=== PATIENT | male | born 1965 | race Caucasian/White ===

== ENCOUNTER → 2016-11-25 | Outpatient (CLI) | payer MEDICAID ==
--- NOTE | 2016-11-25 15:20 | CR ---
EXAMINATION: Lumbar spine HISTORY: Low back pain COMPARISON: MRI dated 08/21/2016 TECHNIQUE: AP, lateral, flexion and extension images obtained. FINDINGS: The lumbar spinal alignment appears normal. The vertebral body heights and disc spaces shiva ear well-maintained. The SI joints are symmetric. Bone mineralization is normal. Marginal osteophyte s are noted. Alignment appears unchanged with flexion and extension. IMPRESSION: Mild degenerative changes without acute findings.
== END ==
LOC: MW.DI 11:45
PROVIDERS: ATTEND Neurological Surgery
DX: M54.5 Low back pain (principal); M47.816 Spondylosis without myelopathy or radiculopathy, lumbar region
CPT/HCPCS: 72110; 72110-26

== ENCOUNTER → 2016-12-02 | Outpatient (CLI) | payer MEDICAID ==
--- NOTE | 2016-12-02 16:18 | CR ---
EXAMINATION: Pelvis and bilateral hips HISTORY: Pain COMPARISON: None TECHNIQUE: AP and lateral views FINDINGS: There is no acute osseous abnormality, dislocation, or fracture identified. Bone mineraliz ation appears normal. Mild joint space narrowing within the hips bilaterally with mild osteophyte fo rmation. The SI joints are symmetric. The iliopectineal lines are intact. IMPRESSION: Mild joint space narrowing and degenerative changes within the hips bilaterally.
== END ==
LOC: MW.CHPM 07:32
PROVIDERS: ATTEND Physician Assistant
DX: M25.551 Pain in right hip (principal); M25.552 Pain in left hip; M25.852 Other specified joint disorders, left hip; M25.851 Other specified joint disorders, right hip
CPT/HCPCS: 73521; 73521-26

== ENCOUNTER 2017-03-10 09:04 | Day surgery (SDC) | payer MEDICAID ==
[~2017-03-10 09:04] MED LIST: Lactated Ringers 1,000 ML IV SCH; Midazolam 1 MG/ML 2 ML SDV ONE; Propofol 200 MG/20 ML SDV ONE
--- NOTE | 2017-03-10 09:28 | PCM.PREANE ---
Preanesthetic Assessment - Anesthesia/Transfusion/Family Hx Other Type of Anesthesia Reaction Comment: states he was told he had difficulty breathing during exc of cheek lesion Family History of Anesthesia Reaction: No Transfusion History: No Prior Transfusion(s) Intubation History: Unknown - Review of Systems General: No Symptoms Pulmonary: No Symptoms Cardiovascular: No Symptoms Gastrointestinal: Other (change in bowel habits) Neurological: No Symptoms Other: Reports: None - Physical Assessment Height: 1.78 m Weight: 133.356 kg ASA Class: 2 Mental Status: Alert & Oriented x3 Dentition: Reports: Normal Dentition, Olcott(s) Thyro-Mental Finger Breadths: 3 Mouth Opening Finger Breadths: 2 ROM/Head Extension: Full Lungs: Clear to Auscultation, Normal Respiratory Effort Cardiovascular: Regular Rate, Regular Rhythm - Allergies Allergies/Adverse Reactions: Allergies Allergy/AdvReac Type Severity Reaction Status Date / Time hydrocodone Allergy Itching Verified 01/20/16 16:15 paroxetine HCl [From Paxil] Allergy Itching Verified 01/20/16 16:15 - Blood Blood Available: No - Anesthesia Plan Pre-Op Medication Ordered: None - Acknowledgements Anesthesia Type Planned: MAC Pt an Appropriate Candidate for the Planned Anesthesia: Yes Alternatives and Risks of Anesthesia Discussed w Pt/Guardian: Yes Pt/Guardian Understands and Agrees with Anesthesia Plan: Yes PreAnesthesia Questionnaire - Past Health History Medical/Surgical History: Denies Medical/Surgical History HEENT History: Reports: None Cardiovascular History: Reports: Hypertension Respiratory History: Reports: Other (See Below) Other Respiratory History: possible sleep apnea, has not been diagnosed Gastrointestinal History: Reports: GERD Genitourinary History: Reports: None Musculoskeletal History: Reports: Arthritis (hips), Back Pain, Chronic, Other ( See Below) Other Musculoskeletal History: 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 Neurological History: Reports: None Psychiatric History: Reports: None Endocrine/Metabolic History: Reports: Obesity/BMI 30+ Hematologic History: Reports: None Immunologic History: Reports: None Oncologic (Cancer) History: Reports: Other (See Below) Other Oncologic History: surgical removal skin cancer to face Dermatologic History: Reports: None - Infectious Disease History Infectious Disease History: Reports: Chicken Pox - Past Surgical History Head Surgeries/Procedures: Reports: None (exc. of skin cancer left side face) HEENT Surgical History: Reports: Tonsillectomy, Other (See Below) Musculoskeletal Surgical History: Reports: Other (See Below) Other Musculoskeletal Surgeries/Procedures:: 2nd digit left hand end of finger amputation, bone spur removed from rt shoulder Dermatological Surgical History: Reports: Skin Biopsy - SUBSTANCE USE Smoking Status *Q: Former Smoker Second Hand Smoke Exposure: No Days Per Week of Alcohol Use: 0 Recreational Drug Use History: No - HOME MEDS Home Medications: Home Meds Esomeprazole [NexIUM] 40 mg PO DAILY PRN 12/28/13 [History] QUEtiapine [SEROquel] 150 mg PO BEDTIME 12/28/13 [History] Lisinopril 10 mg PO DAILY 03/05/17 [History] amLODIPine [Norvasc] 10 mg PO DAILY 03/05/17 [History] - CURRENT (IN HOUSE) MEDS Current Meds: Current Medications Lactated Ringer's (Ringers, Lactated) 1,000 mls @ 125 mls/hr IV ASDIRECTED MATILDE Last Admin: 03/10/17 09:16 Dose: 125 mls/hr Discontinued Medications Lidocaine HCl (Xylocaine-Mpf 1%) Confirm Administered Dose 5 ml .ROUTE .STK-MED ONE Stop: 03/10/17 07:26 Midazolam HCl (Versed 1 Mg/Ml) Confirm Administered Dose 2 mg .ROUTE .STK-MED ONE Stop: 03/10/17 07:25 Propofol (Diprivan 20 Ml) Confirm Administered Dose 400 mg .ROUTE .STK-MED ONE Stop: 03/10/17 07:25
[2017-03-10 10:54] VITALS: BP 116/65
--- NOTE | 2017-03-26 10:03 | PCM.OPNOTE ---
- General Post-Op/Procedure Note Date of Surgery/Procedure: 03/10/17 Operative Procedure(s): colonoscopy Findings: see dict [id number] Pre Op Diagnosis: increase constipation Post-Op Diagnosis: Same Anesthesia Technique: Moderate Sedation Primary Surgeon: Dean Aguilar Complications: None Condition: Good
--- NOTE | 2017-03-26 11:12 | OR ---
SURGEON: Dean Aguilar MD DATE OF PROCEDURE: 03/10/2017 PREOPERATIVE DIAGNOSIS: Increased constipation and change in bowel habit. POSTOPERATIVE DIAGNOSIS: Internal hemorrhoids. PROCEDURE IN DETAIL: Colonoscopy. FINDINGS: 1. The patient is easily sedated with GAME ENGINEER and Diprivan. The patient is soundly snoring. 2. Bowel prep is average with some liquid stool. No semi-formed stool. 3. The patient's colon is rather straight forward and cecum is indicated by ileocecal fold, one-to-one indentation, light immittance, and appendiceal orifice. Mucosa examined upon scope pulling out with some irrigation. The patient does not have diverticulosis, polyp, mass, growth, inflammation, stricture, ulceration, bleeding, AV malformation, none of those. The patient has mild internal hemorrhoids and no external hemorrhoids. The patient would benefit from a repeat colonoscopy 10 years from today or if clinically indicated otherwise. PROCEDURE IN DETAIL: The patient was taken to the endoscopy room. A time out was called, patient identified, and procedure identified. Diprivan was then administrated. Patient went from awake to sleep, hearing doctor talking or door closing is normal. Perineum inspection and digital examination were then performed. A well- lubricated colonoscope was gently inserted through the rectum, advanced past the rectosigmoid junction, the descending colon, splenic flexure, transverse colon, hepatic flexure, ascending colon, arrived to the cecum. Cecum was identified as dictated in the finding. Then the scope was carefully withdrawn while attention was paid to the mucosal surface for any abnormality. Air will be sucked out during the scope withdrawal. At the rectum, retroflexed to examine any rectal diseases, fistula or hemorrhoids. Patient tolerated procedure well. There were no intraoperative complications, and Dr. Aguilar was present throughout the whole procedure. As always, thank you for the kind referral. KATERINE / TAMARA /[id number]
== END 2017-03-10 11:00 | disposition home or self-care (01) ==
LOC: MW.SDS 09:04
PROVIDERS: ATTEND Surgery
DX: K64.8 Other hemorrhoids (principal); G89.29 Other chronic pain; M17.11 Unilateral primary osteoarthritis, right knee; I10 Essential (primary) hypertension; M54.5 Low back pain; M51.36 Other intervertebral disc degeneration, lumbar region; E66.9 Obesity, unspecified; Z88.5 Allergy status to narcotic agent; Z88.8 Allergy status to other drugs, medicaments and biological substances; Z79.899 Other long term (current) drug therapy; Z85.828 Personal history of other malignant neoplasm of skin; Z87.891 Personal history of nicotine dependence; Z80.0 Family history of malignant neoplasm of digestive organs; Z68.41 Body mass index [BMI] 40.0-44.9, adult
CPT/HCPCS: 45378; J2250; J7120; 00810; J2704

== ENCOUNTER → 2017-03-19 | Day surgery (SDC) | payer MEDICAID ==
[~2017-03-19] MED LIST changes: +Bupivacaine 0.25%/EPINEPHrine 1:200,000 10 ML SDV ONE; +Lidocaine 2% 5 ML SDV ONE; +Octyl 2-Cyanoacrylate 1 Tube ONE; +Ondansetron 4 MG/2 ML SDV ONE; +Rocuronium 10 MG/ML 10 ML Syringe ONE; +Succinylcholine/Normal Saline 200 MG/10 ML Syringe ONE; +ceFAZolin 2 GM in Premix Bag 1 BAG IV ONE; +fentaNYL 100 MCG/2 ML SDV IVPUSH PRN; +fentaNYL 100 MCG/2 ML SDV ONE
[2017-03-19 09:58] VITALS: BP 163/93
--- NOTE | 2017-03-19 10:05 | PCM.PREANE ---
Preanesthetic Assessment - Anesthesia/Transfusion/Family Hx Other Type of Anesthesia Reaction Comment: states he was told he had difficulty breathing during exc of cheek lesion Family History of Anesthesia Reaction: No Transfusion History: No Prior Transfusion(s) Intubation History: Unknown - Review of Systems Pulmonary: No Symptoms Cardiovascular: No Symptoms Gastrointestinal: No Symptoms Neurological: No Symptoms Other: Reports: None - Physical Assessment O2 Sat by Pulse Oximetry: 96 Respiratory Rate: 16 Vital Signs: Last Vital Signs Temp 37.1 C 03/19/17 09:57 Pulse 98 03/19/17 09:57 Resp 16 03/19/17 09:57 BP 163/93 H 03/19/17 09:57 Pulse Ox 96 03/19/17 09:57 Height: 1.8 m Weight: 130.4 kg ASA Class: 2 Mental Status: Alert & Oriented x3 Dentition: Reports: Normal Dentition Thyro-Mental Finger Breadths: 3 Mouth Opening Finger Breadths: 2 ROM/Head Extension: Full Lungs: Clear to Auscultation Cardiovascular: Regular Rate Other: Denies any chest pain or shortness of breath - Allergies Allergies/Adverse Reactions: Allergies Allergy/AdvReac Type Severity Reaction Status Date / Time hydrocodone Allergy Itching Verified 01/20/16 16:15 paroxetine HCl [From Paxil] Allergy Itching Verified 01/20/16 16:15 - Anesthesia Plan Free Text/Narrative:: RN just came out of patient room and states that patient has changed his mind about having surgery. States his hernia doesn't hurt him that much and he prefers to wait. - Acknowledgements Anesthesia Type Planned: General Anesthesia Pt an Appropriate Candidate for the Planned Anesthesia: Yes Alternatives and Risks of Anesthesia Discussed w Pt/Guardian: Yes Pt/Guardian Understands and Agrees with Anesthesia Plan: Yes PreAnesthesia Questionnaire - Past Health History Medical/Surgical History: Denies Medical/Surgical History HEENT History: Reports: None Cardiovascular History: Reports: Hypertension Respiratory History: Reports: None Other Respiratory History: possible sleep apnea, has not been diagnosed Gastrointestinal History: Reports: GERD Genitourinary History: Reports: None Musculoskeletal History: Reports: Arthritis, Back Pain, Chronic, Other (See Below) Other Musculoskeletal History: 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 Neurological History: Reports: None Psychiatric History: Reports: None Endocrine/Metabolic History: Reports: None Hematologic History: Reports: None Immunologic History: Reports: None Oncologic (Cancer) History: Reports: Other (See Below) Other Oncologic History: surgical removal of right cheek Dermatologic History: Reports: None - Infectious Disease History Infectious Disease History: Reports: Chicken Pox - Past Surgical History Dermatological Surgical History: Reports: Skin Biopsy - SUBSTANCE USE Smoking Status *Q: Never Smoker Tobacco Use Within Last Twelve Months: No Second Hand Smoke Exposure: No Days Per Week of Alcohol Use: 0 Recreational Drug Use History: No - HOME MEDS Home Medications: Home Meds Esomeprazole [NexIUM] 40 mg PO DAILY PRN 12/28/13 [History] QUEtiapine [SEROquel] 150 mg PO BEDTIME 12/28/13 [History] Lisinopril 30 mg PO DAILY 03/05/17 [History] amLODIPine [Norvasc] 10 mg PO DAILY 03/05/17 [History] traMADol HCl [Tramadol HCl] 1 - 2 tab PO ASDIRECTED PRN 03/17/17 [History] - CURRENT (IN HOUSE) MEDS Current Meds: Current Medications Fentanyl (Sublimaze) 50 mcg IVPUSH Q5M PRN PRN Reason: Pain (severe 7-10) Stop: 03/20/17 08:18 Lactated Ringer's (Ringers, Lactated) 1,000 mls @ 125 mls/hr IV ASDIRECTED MATILDE Last Admin: 03/19/17 09:58 Dose: 125 mls/hr Discontinued Medications Bupivacaine HCl/Epinephrine Bitart (Marcaine 0.25%/Epinephrine 1:200,000) Confirm Administered Dose 30 ml .ROUTE .STK-MED ONE Stop: 03/19/17 09:52 Fentanyl (Sublimaze) Confirm Administered Dose 200 mcg .ROUTE .STK-MED ONE Stop: 03/19/17 08:08 Cefazolin Sodium/Dextrose 2 gm (/ Premix) 50 mls @ 100 mls/hr IV ONETIME ONE Stop: 03/19/17 05:29 Lidocaine (Xylocaine-Mpf 2%) Confirm Administered Dose 5 ml .ROUTE .STK-MED ONE Stop: 03/19/17 08:08 Midazolam HCl (Versed 1 Mg/Ml) Confirm Administered Dose 2 mg .ROUTE .STK-MED ONE Stop: 03/19/17 08:08 Octyl Cyanoacrylate (Dermabond Advance) Confirm Administered Dose 1 applic .ROUTE .STK-MED ONE Stop: 03/19/17 09:52 Ondansetron HCl (Zofran) Confirm Administered Dose 4 mg .ROUTE .STK-MED ONE Stop: 03/19/17 08:08 Propofol (Diprivan 20 Ml) Confirm Administered Dose 200 mg .ROUTE .STK-MED ONE Stop: 03/19/17 08:08 Rocuronium Clarion (Zemuron) Confirm Administered Dose 100 mg .ROUTE .STAppEnsure-MED ONE Stop: 03/19/17 08:08 Succinylcholine Chloride (Succinylcholine In Ns Pf) Confirm Administered Dose 200 mg .ROUTE .STK-MED ONE Stop: 03/19/17 08:08
== END ==
LOC: MW.SDS 09:34
PROVIDERS: ATTEND Surgery
DX: K42.9 Umbilical hernia without obstruction or gangrene (principal); Z53.29 Procedure and treatment not carried out because of patient's decision for other reasons
CPT/HCPCS: A9270-GY; J2250; J2405; J2704; J3010; J7120

== ENCOUNTER 2017-04-16 12:08 | Day surgery (SDC) | payer MEDICAID ==
[~2017-04-16 12:08] MED LIST changes: +Betamethasone Acetate/Betamethasone Sod Phosphate 30 MG/5 ML MDV ONE; -Bupivacaine 0.25%/EPINEPHrine 1:200,000 10 ML SDV ONE; +Iopamidol 408 MG/ML 50 ML SDV ONE; -Lactated Ringers 1,000 ML IV SCH; -Midazolam 1 MG/ML 2 ML SDV ONE; -Octyl 2-Cyanoacrylate 1 Tube ONE; -Ondansetron 4 MG/2 ML SDV ONE; -Propofol 200 MG/20 ML SDV ONE; -Rocuronium 10 MG/ML 10 ML Syringe ONE; +Ropivacaine 0.5% 5 MG/ML 30 ML SDV ONE; -Succinylcholine/Normal Saline 200 MG/10 ML Syringe ONE; -ceFAZolin 2 GM in Premix Bag 1 BAG IV ONE; -fentaNYL 100 MCG/2 ML SDV IVPUSH PRN; -fentaNYL 100 MCG/2 ML SDV ONE
--- NOTE | 2017-04-16 18:28 | OR ---
SURGEON: Kelsie Terry D.O. DATE OF PROCEDURE: 04/16/2017 OR STAFF PRESENT: 1. Javi Greene RN. 2. Henry Draper. WOUND CLASSIFICATION: I. PREOPERATIVE DIAGNOSES: Lumbar degenerative disk disease, lumbar spondylosis, chronic low back pain, lumbar radiculopathy POSTOPERATIVE DIAGNOSES: Lumbar degenerative disk disease, lumbar spondylosis, chronic low back pain, lumbar radiculopathy PROCEDURES PERFORMED: Caudal epidural steroid injection, fluoroscopic guidance for needle placement, local with oral Valium for sedation. SCREENING QUESTIONS: The patient answered "no" to all of the following questions: 1. Are you allergic to latex? 2. Do you have a bleeding disorder? 3. Do you have any current local or systemic infections? 4. Are you taking any anti-inflammatories or blood thinners? 5. Do you have any joint replacements, heart valve replacements, or a pacemaker? DESCRIPTION OF PROCEDURE: The patient had the procedure thoroughly explained including all possible risks, benefits and alternatives. Consent was signed in my clinic indicating understanding and willingness to proceed. The patient presented to [facility] and was escorted to the dressing room to disrobe and change into a hospital gown. Preoperative vital signs were taken and stable. The patient reported that Valium was taken prior to the procedure. The patient was brought back to the procedure room and placed in the prone position on the procedure room table. A pillow was placed under the hips in order to flatten the lumbar lordosis. The back was prepped with ChloraPrep and sterilely draped. All personnel in the operating room were dressed in appropriate attire including surgical scrubs, head and shoe covers. This was to ensure sterility while in the treatment room. During the time fluoroscopy was in use, all personnel in the operating room wore lead mary with thyroid collars. Sterile technique was used throughout the procedure. The patient was awake and conversant throughout the procedure. There was no evidence of infection at the site of needle insertion. Skeletal landmarks were identified under fluoroscopy for the caudal epidural. Skin was anesthetized with 2% lidocaine with a sterile 27-gauge 1.5 inch needle. Then a 20-gauge Tuohy epidural needle was placed in the epidural space with loss of resistance technique under fluoroscopic guidance. No heme, cerebrospinal fluid, or paresthesias were noted. Isovue-200 contrast dye was injected in 0.2 cubic centimeter increments and seen to outline the epidural space in both AP and lateral views. There was no intravascular flow pattern observed under live fluoroscopy. Then 12 milligrams of Celestone was slowly injected after negative aspiration. The patient tolerated the procedure well. Vital signs were stable during and after the procedure. The staff escorted the patient to the recovery area and the patient was released in stable condition after a brief stay in the recovery room monitored by the nurse. The patient was given both oral and written discharge and follow up instructions with recommendation to follow up given for 2-3 weeks. The patient voiced understanding including understanding of those signs and symptoms that would require emergency care. The patient knows how to contact the office if there are any additional problems or questions in the meantime. PREOPERATIVE PAIN: 9/10. POSTOPERATIVE PAIN: 0/10. FOLLOWUP: Follow up in the Pain Clinic in 3 weeks TURNER MCDONALD /[id number] ACE
== END 2017-04-16 13:50 | disposition home or self-care (01) ==
LOC: MW.SDS 12:08
PROVIDERS: ATTEND Anesthesiology
DX: G89.29 Other chronic pain (principal); M51.16 Intervertebral disc disorders with radiculopathy, lumbar region; M47.26 Other spondylosis with radiculopathy, lumbar region; M17.11 Unilateral primary osteoarthritis, right knee; M16.0 Bilateral primary osteoarthritis of hip; I10 Essential (primary) hypertension; Z85.828 Personal history of other malignant neoplasm of skin; Z87.891 Personal history of nicotine dependence; Z88.5 Allergy status to narcotic agent; Z79.899 Other long term (current) drug therapy
CPT/HCPCS: 62323; J0702; J2795; Q9966

== ENCOUNTER 2017-05-05 07:29 | Day surgery (SDC) | payer MEDICAID ==
[~2017-05-05 07:29] MED LIST changes: -Betamethasone Acetate/Betamethasone Sod Phosphate 30 MG/5 ML MDV ONE; -Iopamidol 408 MG/ML 50 ML SDV ONE; +Lactated Ringers 1,000 ML IV SCH; -Lidocaine 2% 5 ML SDV ONE; -Ropivacaine 0.5% 5 MG/ML 30 ML SDV ONE; +ceFAZolin 2 GM in Premix Bag 1 BAG IV ONE
[2017-05-05] MEDS ORDERED: Midazolam 1 MG/ML 2 ML SDV IVPUSH ONE (07:51)
[2017-05-05] MEDS ORDERED: fentaNYL 100 MCG/2 ML SDV ONE (08:23)
[2017-05-05] MEDS ORDERED: Propofol 200 MG/20 ML SDV ONE (08:23)
[2017-05-05] MEDS ORDERED: Ondansetron 4 MG/2 ML SDV ONE (08:23)
[2017-05-05] MEDS ORDERED: Midazolam 1 MG/ML 2 ML SDV ONE (08:24)
[2017-05-05] MEDS ORDERED: Dexamethasone 4 MG/ML 5 ML MDV ONE (08:25)
[2017-05-05] MEDS ORDERED: Rocuronium 10 MG/ML 10 ML Syringe ONE (08:25)
[2017-05-05] MEDS ORDERED: Ketorolac 30 MG/ML SDV ONE (08:25)
--- NOTE | 2017-05-05 08:33 | PCM.PREANE ---
Preanesthetic Assessment - Anesthesia/Transfusion/Family Hx Anesthesia History: Prior Anesthesia Without Reaction Other Type of Anesthesia Reaction Comment: was told he had difficulty breathing during exc of cheek lesion Family History of Anesthesia Reaction: No Transfusion History: No Prior Transfusion(s) Intubation History: Unknown - Review of Systems General: No Symptoms Pulmonary: No Symptoms Cardiovascular: No Symptoms Gastrointestinal: No Symptoms Neurological: No Symptoms Other: Reports: None - Physical Assessment NPO Status Date: 05/04/17 NPO Status Time: 20:30 O2 Sat by Pulse Oximetry: 95 Respiratory Rate: 16 Vital Signs: Last Vital Signs Temp 37.0 C 05/05/17 07:51 Pulse 90 05/05/17 07:51 Resp 16 05/05/17 07:51 BP 131/68 05/05/17 07:51 Pulse Ox 95 05/05/17 07:51 Height: 1.8 m Weight: 130.4 kg ASA Class: 2 Mental Status: Alert & Oriented x3 Airway Class: Mallampati = 2 Dentition: Reports: Normal Dentition (bonded front upper tooth) Thyro-Mental Finger Breadths: 3 Mouth Opening Finger Breadths: 2 ROM/Head Extension: Full Lungs: Clear to Auscultation, Normal Respiratory Effort Cardiovascular: Regular Rate, Regular Rhythm - Allergies Allergies/Adverse Reactions: Allergies Allergy/AdvReac Type Severity Reaction Status Date / Time hydrocodone Allergy Itching Verified 01/20/16 16:15 paroxetine HCl [From Paxil] Allergy Itching Verified 01/20/16 16:15 - Blood Blood Available: No - Anesthesia Plan Pre-Op Medication Ordered: None - Acknowledgements Anesthesia Type Planned: General Anesthesia Pt an Appropriate Candidate for the Planned Anesthesia: Yes Alternatives and Risks of Anesthesia Discussed w Pt/Guardian: Yes Pt/Guardian Understands and Agrees with Anesthesia Plan: Yes PreAnesthesia Questionnaire - Past Health History Medical/Surgical History: Denies Medical/Surgical History HEENT History: Reports: None Cardiovascular History: Reports: Hypertension Respiratory History: Reports: None Other Respiratory History: possible sleep apnea, has not been diagnosed Gastrointestinal History: Reports: GERD Genitourinary History: Reports: None Musculoskeletal History: Reports: Arthritis (bilateral hips), Back Pain, Chronic , Other (See Below) Other Musculoskeletal History: 2nd digit on left hand end amputated Neurological History: Reports: None Psychiatric History: Reports: None Endocrine/Metabolic History: Reports: Obesity/BMI 30+ (BMI 40.1) Hematologic History: Reports: None Immunologic History: Reports: None Oncologic (Cancer) History: Reports: Basal Cell Carcinoma, Other (See Below) Other Oncologic History: surgical removal of right cheek lesion Dermatologic History: Reports: None - Infectious Disease History Infectious Disease History: Reports: Chicken Pox - Past Surgical History Head Surgeries/Procedures: Reports: None HEENT Surgical History: Reports: Tonsillectomy GI Surgical History: Reports: Colonoscopy Musculoskeletal Surgical History: Reports: Shoulder Surgery (exc. bone spurs), Other (See Below) Other Musculoskeletal Surgeries/Procedures:: finger amputation (distal rt. index finger) Dermatological Surgical History: Reports: Skin Biopsy (exc. skin cancer left side of his face) - SUBSTANCE USE Smoking Status *Q: Never Smoker Tobacco Use Within Last Twelve Months: No Second Hand Smoke Exposure: No Days Per Week of Alcohol Use: 0 Recreational Drug Use History: No - HOME MEDS Home Medications: Home Meds Esomeprazole [NexIUM] 20 mg PO DAILY PRN 12/28/13 [History] QUEtiapine [SEROquel] 150 mg PO BEDTIME 12/28/13 [History] Lisinopril 30 mg PO DAILY 03/05/17 [History] amLODIPine [Norvasc] 10 mg PO DAILY 03/05/17 [History] traMADol HCl [Tramadol HCl] 1 - 2 tab PO ASDIRECTED PRN 03/17/17 [History] - CURRENT (IN HOUSE) MEDS Current Meds: Current Medications Lactated Ringer's (Ringers, Lactated) 1,000 mls @ 125 mls/hr IV ASDIRECTED MATILDE Last Admin: 05/05/17 07:54 Dose: 125 mls/hr Discontinued Medications Fentanyl (Sublimaze) Confirm Administered Dose 100 mcg .ROUTE .STK-MED ONE Stop: 05/05/17 08:24 Cefazolin Sodium/Dextrose 2 gm (/ Premix) 50 mls @ 100 mls/hr IV ONETIME ONE Stop: 05/05/17 05:29 Midazolam HCl (Versed 1 Mg/Ml) 2 mg IVPUSH ONETIME ONE Stop: 05/05/17 07:52 Last Admin: 05/05/17 08:10 Dose: 1 mg Midazolam HCl (Versed 1 Mg/Ml) Confirm Administered Dose 2 mg .ROUTE .STK-MED ONE Stop: 05/05/17 08:25 Ondansetron HCl (Zofran) Confirm Administered Dose 4 mg .ROUTE .STK-MED ONE Stop: 05/05/17 08:24 Propofol (Diprivan 20 Ml) Confirm Administered Dose 400 mg .ROUTE .STK-MED ONE Stop: 05/05/17 08:24
[2017-05-05] MEDS ORDERED: Succinylcholine/Normal Saline 200 MG/10 ML Syringe ONE (09:05)
[2017-05-05] MEDS ORDERED: Bupivacaine 25%/EPINEPHrine/PF 30 ML ONE ×2 (09:35→10:40)
[2017-05-05] MEDS ORDERED: Octyl 2-Cyanoacrylate 1 Tube ONE (09:35)
[2017-05-05] MEDS ORDERED: Acetaminophen/oxyCODONE 325-10 MG Tab PO ONE (09:39)
[2017-05-05] MEDS ORDERED: Sodium Chloride 0.9% 20 ML ONE (09:51)
[2017-05-05] MEDS ORDERED: ceFAZolin 1 GM Vial ONE (09:51)
[2017-05-05] MEDS ORDERED: Sugammadex Sodium 200 MG/2 ML VIAL ONE (10:40)
[2017-05-05] MEDS ORDERED: Lidocaine 2% 5 ML SDV ONE (10:42)
--- NOTE | 2017-05-05 10:53 | PCM.OPNOTE ---
- General Post-Op/Procedure Note Date of Surgery/Procedure: 05/05/17 Operative Procedure(s): incarcerated umb hernia rep, no mesh used Findings: large hernia sac 3 cm, small hernia neck 14 mm, repair primarily, no mesh used; [id number] Pre Op Diagnosis: incarc umb hernia Post-Op Diagnosis: Same Anesthesia Technique: General ET Tube Primary Surgeon: Dean Aguilar Pathology: hernia sac Complications: None Condition: Good
--- NOTE | 2017-05-05 11:29 | PCM.POSTAN ---
POST ANESTHESIA ASSESSMENT - MENTAL STATUS Mental Status: Alert, Oriented - RESPIRATORY Respiratory Status: Respiratory Rate WNL, Airway Patent, O2 Saturation Stable - CARDIOVASCULAR CV Status: Pulse Rate WNL, Blood Pressure Stable - GASTROINTESTINAL GI Status: No Symptoms - PAIN Pain Score: 5 - POST OP HYDRATION Hydration Status: Adequate & Stable - OBSERVATIONS Free Text/Narrative:: no anesthesia problems
[2017-05-05 12:03] VITALS: BP 117/62
--- NOTE | 2017-05-05 15:15 | OR ---
SURGEON: Dean Aguilar MD DATE OF PROCEDURE: 05/05/2017 PREOPERATIVE DIAGNOSIS: Incarcerated umbilical hernia. POSTOPERATIVE DIAGNOSIS: Incarcerated umbilical hernia. PROCEDURE PERFORMED: Repair with primary, no mesh used. COMPLICATIONS: None. FINDINGS: Large hernia sac 3 cm more, hernia neck 14 mm. Repair primary, no mesh used. PROCEDURE: The patient was brought to the operating room and placed in the supine position and upon the induction of general endotracheal anesthesia, the patient's abdomen was prepped and draped in sterile fashion. After assessment of appropriate landmarks, a surgical incision was made periumbilically which was then carefully dissected with blunt and sharp dissection surrounding the umbilical stalk. Hernia was entered and the fascial defect was noted, and the excess hernia sac was amputated. The facial edge was noted to be intact and the fascia was then grasped up with Allis clamps and then using 2-0 Ethibond, simple stitches were placed. After repair was finished and exploring the neighborhood, I failed to find any more hernia defect. This was followed with extensive irrigation and good hemostasis was achieved by using electrocautery. The umbilicus was then stitched down to recreate the umbilicus, and the skin was closed with 3-0 Vicryl subcutaneously followed with Dermabond approximating the skin. The patient was then awakened and extubated and transferred to the recovery room in good stable condition. Dr. Aguilar was present through the whole procedure. At the conclusion of the surgery, before closing the abdominal wound, instrument count and sponge count were done and were correct. Just before surgery, a timeout was called. The patient was identified and procedure identified and procedure started. KATERINE / TAMARA /[id number]
== END 2017-05-05 12:00 | disposition home or self-care (01) ==
LOC: MW.SDS 07:29
PROVIDERS: ATTEND Surgery
DX: K42.0 Umbilical hernia with obstruction, without gangrene (principal); G89.29 Other chronic pain; M54.9 Dorsalgia, unspecified; M17.11 Unilateral primary osteoarthritis, right knee; I10 Essential (primary) hypertension; M51.36 Other intervertebral disc degeneration, lumbar region; M16.0 Bilateral primary osteoarthritis of hip; Z85.828 Personal history of other malignant neoplasm of skin; Z87.891 Personal history of nicotine dependence; Z88.5 Allergy status to narcotic agent; Z88.8 Allergy status to other drugs, medicaments and biological substances; Z79.899 Other long term (current) drug therapy; Z98.890 Other specified postprocedural states
CPT/HCPCS: 49587; A9270; C9399; J0690; J1100; J1885; J2250; J2405; J3010; J7120; 00830; 88302; J2704

== ENCOUNTER 2017-08-12 16:08 | Observation (INO) | payer MEDICAID ==
[2017-08-12] MEDS ORDERED: Sodium Chloride 0.9% 10 ML Syringe FLUSH PRN (16:31)
[2017-08-12] MEDS ORDERED: Sodium Chloride 0.9% 2.5 ML Syringe FLUSH PRN (16:31)
[2017-08-12] MEDS ORDERED: Diltiazem 25 MG/5 ML SDV IVPUSH ONE (16:31)
--- NOTE | 2017-08-12 16:44 | EDM.PDOC ---
ED HPI GENERAL MEDICAL PROBLEM - General Chief Complaint: Cardiovascular Problem Stated Complaint: RAPID HEARTBEAT Time Seen by Provider: 08/12/17 16:34 Source of Information: Reports: Patient History Limitations: Reports: No Limitations - History of Present Illness INITIAL COMMENTS - FREE TEXT/NARRATIVE: HISTORY AND PHYSICAL: []52-year-old male presenting with rapid heart rate History of Present Illness: []This patient was eating lunch and felt his heart started to race an hour later it is still racing States that he has had cold-like symptoms and coughing for the last 2 weeks Patient states he was influenza positive last week Review of Systems: As per history of present illness and below otherwise all systems reviewed and negative. Past medical history: As per history of present illness and as reviewed below otherwise noncontributory. Surgical history: As per history of present illness and as reviewed below otherwise noncontributory. Social history: No reported history of drug or alcohol abuse. Family history: As per history of present illness and as reviewed below otherwise noncontributory. Physical exam: Alert and oriented gentleman skin is slightly moist. Initial heart rate of 144. HEENT: Atraumatic, normocehpalic, pupils reactive, negative for conjunctival pallor or scleral icterus, mucous membranes moist, throat clear, neck supple, nontender, trachea midline. Lungs: Clear to auscultation, breath sounds equal bilaterally, chest non tender. Heart: S1S2, regular, negative for clicks, rubs, or JVD. Abdomen: Soft, nondistended, nontender. Negative for masses or hepatossplenmegaly. Negative for costovertebral tenderness. Pelvis: Stable nontender. Genitourinary: Deferred. Rectal: Deferred Extremities: Atraumatic, negative for cords or calf pain. Neurovascular unremarkable. Neuro: Awake, alert, oriented. Cranial nerves II through XII unremarkable. Cerebellum unremarkable. Motor and sensory unremarkable throughout. Exam nonfocal. Diagnostics: [CBC CMP troponin EKG UA ] Therapeutics: [Diltiazem 20 mg IV] Impression: []Atrial fibrillation new-onset Plan: [] Definitive disposition and diagnosis as appropriate pending reevaluation and review of above. Onset: Today, Sudden Duration: Hour(s):, Heavy Location: Reports: Chest Quality: Reports: Ache Severity: Mild Improves with: Reports: None Worsens with: Reports: None Associated Symptoms: Reports: Cough - Related Data Allergies Allergy/AdvReac Type Severity Reaction Status Date / Time hydrocodone Allergy Itching Verified 08/12/17 16:15 paroxetine HCl [From Paxil] Allergy Itching Verified 08/12/17 16:15 Home Meds: Home Meds Esomeprazole [NexIUM] 20 mg PO DAILY PRN 12/28/13 [History] QUEtiapine [SEROquel] 150 mg PO BEDTIME 12/28/13 [History] Lisinopril 30 mg PO DAILY 03/05/17 [History] amLODIPine [Norvasc] 10 mg PO DAILY 03/05/17 [History] Past Medical History - Past Health History Medical/Surgical History: Denies Medical/Surgical History HEENT History: Reports: None Cardiovascular History: Reports: Hypertension Respiratory History: Reports: None Other Respiratory History: possible sleep apnea, has not been diagnosed Gastrointestinal History: Reports: GERD Genitourinary History: Reports: None Musculoskeletal History: Reports: Arthritis (bilateral hips), Back Pain, Chronic , Other (See Below) Other Musculoskeletal History: 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 Neurological History: Reports: None Psychiatric History: Reports: Other (See Below) Other Psychiatric History: insomnia Endocrine/Metabolic History: Reports: Obesity/BMI 30+ Hematologic History: Reports: None Immunologic History: Reports: None Oncologic (Cancer) History: Reports: Other (See Below) Other Oncologic History: surgical removal of right cheek Dermatologic History: Reports: None - Infectious Disease History Infectious Disease History: Reports: Chicken Pox - Past Surgical History Head Surgeries/Procedures: Reports: None HEENT Surgical History: Reports: Tonsillectomy GI Surgical History: Reports: Colonoscopy Dermatological Surgical History: Reports: Skin Biopsy Social & Family History - Family History Family Medical History: Noncontributory - Tobacco Use Smoking Status *Q: Never Smoker Years of Tobacco use: 20 Used Tobacco, but Quit: Yes Month Tobacco Last Used: quit smoking 12 yrs ago Second Hand Smoke Exposure: No - Alcohol Use Days Per Week of Alcohol Use: 0 - Recreational Drug Use Recreational Drug Use: No - Living Situation & Occupation Occupation: Employed ED ROS GENERAL - Review of Systems Review Of Systems: ROS reveals no pertinent complaints other than HPI. ED EXAM, GENERAL - Physical Exam Exam: See Below (see dictation) EKG INTERPRETATION EKG Date: 08/12/17 Rhythm: A-Fib Icard: Normal Comparison: NA - No Prior EKG Course - Vital Signs Last Recorded V/S: Last Vital Signs Temp 36.2 C 08/12/17 16:12 Pulse 125 H 08/12/17 16:12 Resp 18 08/12/17 16:12 BP 177/100 H 08/12/17 16:12 Pulse Ox 96 08/12/17 16:12 - Orders/Labs/Meds Orders: Active Orders 24 hr Category Date Time Status Patient Status [ADT] Stat ADT 08/12/17 17:50 Ordered Cardiac Monitoring [RC] . DIRECTED Care 08/12/17 16:30 Active EKG Documentation Completion [RC] STAT Care 08/12/17 16:30 Active Chest 2V [CR] Stat Exams 08/12/17 16:52 Ordered Sodium Chloride 0.9% [Saline Flush] Med 08/12/17 16:31 Active 10 ml FLUSH ASDIRECTED PRN Sodium Chloride 0.9% [Saline Flush] Med 08/12/17 16:31 Active 2.5 ml FLUSH ASDIRECTED PRN Saline Lock Insert [OM.PC] Stat Oth 08/12/17 16:30 Ordered Medication Orders Sodium Chloride (Saline Flush) 10 ml FLUSH ASDIRECTED PRN PRN Reason: Keep Vein Open Sodium Chloride (Saline Flush) 2.5 ml FLUSH ASDIRECTED PRN PRN Reason: Keep Vein Open Labs: Laboratory Tests 08/12/17 08/12/17 Range/Units 16:40 16:40 WBC 5.05 (4.0-11.0) K/uL RBC 5.20 (4.50-5.90) M/uL Hgb 15.7 (13.0-17.0) g/dL Hct 45.6 (38.0-50.0) % MCV 87.7 (80.0-98.0) fL MCH 30.2 (27.0-32.0) pg MCHC 34.4 (31.0-37.0) g/dL RDW Std Deviation 41.0 (28.0-62.0) fl RDW Coeff of Kathleen 13 (11.0-15.0) % Plt Count 168 (150-400) K/uL MPV 10.90 (7.40-12.00) fL Neut % (Auto) 56.2 (48.0-80.0) % Lymph % (Auto) 31.5 (16.0-40.0) % [place] % (Auto) 9.5 (0.0-15.0) % Eos % (Auto) 2.4 (0.0-7.0) % Baso % (Auto) 0.4 (0.0-1.5) % Neut # (Auto) 2.8 (1.4-5.7) K/uL Lymph # (Auto) 1.6 (0.6-2.4) K/uL [place] # (Auto) 0.5 (0.0-0.8) K/uL Eos # (Auto) 0.1 (0.0-0.7) K/uL Baso # (Auto) 0.0 (0.0-0.1) K/uL Nucleated RBC % 0.0 /100WBC Nucleated RBCs # 0 K/uL Sodium 138 (136-146) mmol/L Potassium 4.0 (3.5-5.1) mmol/L Chloride 105 (98-110) mmol/L Carbon Dioxide 22 (21-31) mmol/L BUN 13 (6.0-23.0) mg/dL Creatinine 1.0 (0.6-1.5) mg/dL Est Cr Clr Drug Dosing 88.21 mL/min Estimated GFR (MDRD) > 60.0 ml/min Glucose 170 H (60-110) mg/dL Calcium 9.6 (8.8-10.8) mg/dL Total Bilirubin 0.5 (0.1-1.5) mg/dL AST 29 (5-40) IU/L ALT 57 H (8-54) IU/L Alkaline Phosphatase 104 (40-150) Troponin I < 0.10 (0.0-0.29) NG/ML Total Protein 7.8 (6.0-8.0) g/dL Albumin 4.4 (3.5-5.0) g/dL Globulin 3.4 (2.0-3.5) g/dL Albumin/Globulin Ratio 1.3 (1.3-2.8) Meds: Medications Generic Name Dose Route Start Last Admin Trade Name Freq PRN Reason Stop Dose Admin Sodium Chloride 10 ml 08/12/17 16:31 Saline Flush FLUSH ASDIRECTED PRN Keep Vein Open Sodium Chloride 2.5 ml 08/12/17 16:31 Saline Flush FLUSH ASDIRECTED PRN Keep Vein Open Discontinued Medications Generic Name Dose Route Start Last Admin Trade Name Blanca PRN Reason Stop Dose Admin Diltiazem HCl 20 mg 08/12/17 16:31 08/12/17 16:42 Diltiazem IVPUSH 08/12/17 16:32 20 mg ONETIME ONE Administration Rivaroxaban 10 mg 08/12/17 17:07 08/12/17 17:41 Xarelto PO 08/12/17 17:08 10 mg ONETIME ONE Administration Departure - Departure Time of Disposition: 17:52 Disposition: Refer to Observation Condition: Fair Clinical Impression: Atrial fibrillation, new onset Instructions: Atrial Fibrillation, [id number] Referrals: PCP,None [Primary Care Provider] - Forms: ED Department Discharge - My Orders Last 24 Hours: My Active Orders 08/12/17 16:30 Cardiac Monitoring [RC] . DIRECTED EKG Documentation Completion [RC] STAT Saline Lock Insert [OM.PC] Stat 08/12/17 16:31 Sodium Chloride 0.9% [Saline Flush] 10 ml FLUSH ASDIRECTED PRN Sodium Chloride 0.9% [Saline Flush] 2.5 ml FLUSH ASDIRECTED PRN 08/12/17 16:52 Chest 2V [CR] Stat 08/12/17 17:50 Patient Status [ADT] Stat - Assessment/Plan Last 24 Hours: My Active Orders 08/12/17 16:30 Cardiac Monitoring [RC] . DIRECTED EKG Documentation Completion [RC] STAT Saline Lock Insert [OM.PC] Stat 08/12/17 16:31 Sodium Chloride 0.9% [Saline Flush] 10 ml FLUSH ASDIRECTED PRN Sodium Chloride 0.9% [Saline Flush] 2.5 ml FLUSH ASDIRECTED PRN 08/12/17 16:52 Chest 2V [CR] Stat 08/12/17 17:50 Patient Status [ADT] Stat
[2017-08-12 17:06] LABS: CHLORIDE,CL 105 mmol/L (98-110); SODIUM,NA 138 mmol/L (136-146)
[2017-08-12] MEDS ORDERED: Rivaroxaban 10 MG Tab PO ONE (17:07)
[2017-08-12] MEDS ORDERED: Magnesium Sulfate/Water 2 GM in Premix Bag 1 BAG IV ONE (21:05)
[2017-08-12] MEDS ORDERED: Ondansetron 4 MG/2 ML SDV IVPUSH PRN (21:06)
[2017-08-12] MEDS ORDERED: Baclofen 10 MG Tab PO PRN (21:09)
--- NOTE | 2017-08-12 21:17 | PCM.HP ---
H&P History of Present Illness - General Admit Problem/Dx: Admission Diagnosis/Problem Admission Diagnosis/Problem Atrial fibrillation - History of Present Illness Initial Comments - Free Text/Narative: 52 yo male who presented with several hour history of palpitations. He had associated symptoms of shortness of breath but denies any chest pain. He was noted in the ED to be in atrial fibrillation with heart rate in the 140s-150s he was given IV diltiazem which slowed it down to the 100-120s. He was transferred to the medical floor where he then converted to normal sinus rhythm. - Related Data Allergies/Adverse Reactions: Allergies Allergy/AdvReac Type Severity Reaction Status Date / Time hydrocodone Allergy Itching Verified 08/12/17 19:46 paroxetine HCl [From Paxil] Allergy Itching Verified 08/12/17 19:46 Home Medications: Home Meds Esomeprazole [NexIUM] 20 mg PO DAILY PRN 12/28/13 [History] QUEtiapine [SEROquel] 150 mg PO BEDTIME 12/28/13 [History] Lisinopril 30 mg PO DAILY 03/05/17 [History] amLODIPine [Norvasc] 10 mg PO DAILY 03/05/17 [History] Baclofen 10 mg PO TID PRN 08/12/17 [History] Past Medical History - Past Health History Medical/Surgical History: Denies Medical/Surgical History HEENT History: Reports: None Cardiovascular History: Reports: Hypertension Respiratory History: Reports: None Other Respiratory History: possible sleep apnea, has not been diagnosed Gastrointestinal History: Reports: GERD Genitourinary History: Reports: None Musculoskeletal History: Reports: Arthritis, Back Pain, Chronic, Other (See Below) Other Musculoskeletal History: 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 Neurological History: Reports: None Psychiatric History: Reports: Other (See Below) Other Psychiatric History: insomnia Endocrine/Metabolic History: Reports: Obesity/BMI 30+ Hematologic History: Reports: None Immunologic History: Reports: None Oncologic (Cancer) History: Reports: Other (See Below) Other Oncologic History: surgical removal of left cheek skin cancer Dermatologic History: Reports: None - Infectious Disease History Infectious Disease History: Reports: Chicken Pox - Past Surgical History Head Surgeries/Procedures: Reports: None HEENT Surgical History: Reports: Tonsillectomy GI Surgical History: Reports: Colonoscopy Dermatological Surgical History: Reports: Skin Biopsy Social & Family History - Family History Family Medical History: Noncontributory Musculoskeletal: Reports: Arthritis - Tobacco Use Smoking Status *Q: Never Smoker Years of Tobacco use: 20 Used Tobacco, but Quit: Yes Month Tobacco Last Used: quit smoking 12 yrs ago Second Hand Smoke Exposure: No - Alcohol Use Days Per Week of Alcohol Use: 0 - Recreational Drug Use Recreational Drug Use: No - Living Situation & Occupation Occupation: Employed H&P Review of Systems - Review of Systems: Review Of Systems: ROS reveals no pertinent complaints other than HPI. Gastrointestinal: Denies: Black Stool, Bloody Stool, Hematemesis, Hematochezia, Melena Exam - Exam Exam: See Below - Vital Signs Vital Signs: Last Vital Signs Temp 37.3 C 08/12/17 19:04 Pulse 117 H 08/12/17 19:04 Resp 18 08/12/17 19:04 BP 134/96 H 08/12/17 19:04 Pulse Ox 94 L 08/12/17 19:04 Weight: 131.542 kg - Exam General: Alert, Oriented HEENT: Mucosa Moist & [place] Neck: Supple, Trachea Midline. No: JVD Lungs: Clear to Auscultation, Normal Respiratory Effort Cardiovascular: Regular Rate, Regular Rhythm GI/Abdominal Exam: Soft, Non-Tender Extremities: Non-Tender, No Pedal Edema Skin: Warm, Dry, Intact - Patient Data Result Diagrams: 08/12/17 16:40 08/12/17 16:40 *Q Meaningful Use (ADM) - VTE *Q VTE Criteria *Q: - Stroke *Q Stroke Criteria *Q: - AMI *Q AMI Criteria *Q: Problem List Initiated/Reviewed/Updated: Yes Orders Last 24hrs: Active Orders 24 hr Category Date Time Status Antiembolic Devices [RC] PER UNIT ROUTINE Care 08/12/17 21:09 Ordered Oxygen Therapy [RC] PRN Care 08/12/17 21:06 Ordered Up ad Nereyda [RC] ASDIRECTED Care 08/12/17 21:06 Ordered VTE/DVT Education [RC] PER UNIT ROUTINE Care 08/12/17 21:06 Ordered Vital Signs [RC] Q4H Care 08/12/17 21:06 Ordered [place] Diet [DIET] Diet 08/12/17 Breakfast Ordered GLYCOSYLATED HEMOGLOBIN,HGBA1C [CHEM] Routine Lab 08/12/17 21:05 Ordered Baclofen [Lioresal] Med 08/12/17 21:09 Ordered 10 mg PO TID PRN Esomeprazole Med 08/12/17 21:09 Ordered 20 mg PO DAILY PRN Magnesium Sulfate/Water [Magnesium Sulfate 2 GM in Med 08/12/17 21:05 Ordered Water 50 ML] 2 gm Premix Bag 1 bag IV ONETIME Metoprolol Tartrate [Lopressor] Med 08/12/17 21:00 Active 25 mg PO Q12HR Ondansetron [Zofran] Med 08/12/17 21:06 Ordered 4 mg IVPUSH Q4H PRN QUEtiapine [SEROquel] Med 08/13/17 21:00 Ordered 150 mg PO BEDTIME Sequential Compression Device [OM.PC] Per Unit Routine Oth 08/12/17 21:08 Ordered Resuscitation Status Routine Resus Stat 08/12/17 21:06 Ordered Medication Orders Baclofen (Lioresal) 10 mg PO TID PRN PRN Reason: Spasms Magnesium Sulfate 2 gm/ Premix 50 mls @ 50 mls/hr IV ONETIME ONE Stop: 08/12/17 22:04 Metoprolol Tartrate (Lopressor) 25 mg PO Q12HR MATILDE Ondansetron HCl (Zofran) 4 mg IVPUSH Q4H PRN PRN Reason: Nausea Sodium Chloride (Saline Flush) 10 ml FLUSH ASDIRECTED PRN PRN Reason: Keep Vein Open Sodium Chloride (Saline Flush) 2.5 ml FLUSH ASDIRECTED PRN PRN Reason: Keep Vein Open Assessment/Plan Comment:: 52 yo admitted for atrial fibrillation with RVR. He has since converted to normal sinus rhythm. We will start metoprolol 25 mg tonight and continue to monitor on telemetry. Glucose was noted to be 170. We will check HgA1c
[2017-08-12] MEDS ORDERED: QUEtiapine 100 MG Tab PO SCH (21:30)
[2017-08-12] MEDS ORDERED: Omeprazole 20 MG Cap.CR PO PRN (21:30)
[2017-08-12] MEDS: Metoprolol Tartrate 25 MG Tab PO SCH (21:55)
[2017-08-13] MEDS: Insulin Aspart 100 Units/ML 3 ML Pen SUBCUT SCH ×2 (06:32→11:42)
[2017-08-13] MEDS: Metoprolol Tartrate 25 MG Tab PO SCH (09:01)
--- NOTE | 2017-08-13 09:27 | CR ---
EXAM DATE: 08/12/17 PATIENT'S AGE: 52 Patient: JOHNNY PEREZ Facility: [place], [place] Site . Site : [id number] Study: XRay Chest [id number] 5:59:25 PM Ordering Physician: Doctor Nicholson Final Report: INDICATION: Shortness of breath. TECHNIQUE: AP chest. COMPARISON: 08/21/2015. FINDINGS: Stable and unremarkable cardiac, mediastinal and hilar contours. Pulmonary vasculature appears normal. Lungs are grossly clear although somewhat limited in their evaluation due to body habitus. No pleural fluid or pneumothorax. IMPRESSION: No signs of acute cardiopulmonary disease. Dictated by Seth Edwards MD @ 08/12/2017 6:18:54 PM Dictated by: eSth Edwards MD @ 08/12/2017 18:19:00 (Electronic Signature) Report Signed by Proxy. [facility]
[2017-08-13] MEDS ORDERED: Aspirin 81 MG Tab.Chew PO SCH (09:30)
[2017-08-13] MEDS ORDERED: Lisinopril 10 MG Tab PO SCH (09:45)
[2017-08-13 10:01] LABS: CHLORIDE,CL 105 mmol/L (98-110); SODIUM,NA 137 mmol/L (136-146)
[2017-08-13 11:42] VITALS: BP 120/70
--- NOTE | 2017-08-13 13:00 | PCM.DCSUM1 ---
<Satnam Parrish - Last Filed: 08/13/17 13:00> Discharge Summary - Hospital Course Free Text/Narrative:: admission date:August 12, 2017 Discharge date: August 13, 2017 Admission diagnosis: #1. Atrial fibrillation with RVR #2.Palpitations secondary to #1 #3. History of hypertension, obesity Discharge diagnosis: #1. New onset atrial fibrillation, sinus rhythm at the time of discharge #2. Palpitations resolved #3. History of hypertension, obesity Hospital course: 52-year-old male with a past history as stated above the presented with a chief complaint of palpitations found to be tachycardic in the emergency department with EKG consistent with atrial fibrillation. Patient was given a one-time dose of IV Cardizem, recheck indicated the patient was then in normal sinus rhythm. He is admitted for observation. The patient remained in normal sinus rhythm during hospital stay. His palpitations resolved. Calculated chads score is 1, indicating the need for aspirin but no anticoagulation. A TSH was obtained which was negative. Echocardiogram was obtained and results are pending which can be followed up by the primary care provider. Patient was discharged home on metoprolol 25 mg by mouth twice a day along with aspirin. - Discharge Data Discharge Date: 08/13/17 Discharge Disposition: Home, Self-Care 01 Condition: Good - Discharge Plan Prescriptions/Med Rec: Metoprolol Tartrate [Lopressor] 25 mg PO Q12HR 30 Days #60 tablet Aspirin 81 mg PO DAILY 60 Days #30 tab.chew Home Medications: Home Meds Esomeprazole [NexIUM] 20 mg PO DAILY PRN 12/28/13 [History] QUEtiapine [SEROquel] 150 mg PO BEDTIME 12/28/13 [History] Lisinopril 30 mg PO DAILY 03/05/17 [History] amLODIPine [Norvasc] 10 mg PO DAILY 03/05/17 [History] Baclofen 10 mg PO TID PRN 08/12/17 [History] Aspirin 81 mg PO DAILY 60 Days #30 tab.chew 08/13/17 [Rx] Metoprolol Tartrate [Lopressor] 25 mg PO Q12HR 30 Days #60 tablet 08/13/17 [Rx] Patient Handouts: Metoprolol tablets, Aspirin, ASA oral tablets, Atrial Fibrillation, [id number] Referrals: [facility] [Outside] Evgeny Christianson MD [Physician] - 08/24/17 1:00 pm - Discharge Summary/Plan Comment Discharge Summary/Plan Comment: admission date:August 12, 2017 Discharge date: August 13, 2017 Admission diagnosis: #1. Atrial fibrillation with RVR #2.Palpitations secondary to #1 #3. History of hypertension, obesity Discharge diagnosis: #1. New onset atrial fibrillation, sinus rhythm at the time of discharge #2. Palpitations resolved #3. History of hypertension, obesity Hospital course: 52-year-old male with a past history as stated above the presented with a chief complaint of palpitations found to be tachycardic in the emergency department with EKG consistent with atrial fibrillation. Patient was given a one-time dose of IV Cardizem, recheck indicated the patient was then in normal sinus rhythm. He is admitted for observation. The patient remained in normal sinus rhythm during hospital stay. His palpitations resolved. Calculated chads score is 1, indicating the need for aspirin but no anticoagulation. A TSH was obtained which was negative. Echocardiogram was obtained and results are pending which can be followed up by the primary care provider. Patient was discharged home on metoprolol 25 mg by mouth twice a day along with aspirin. - Patient Data Vitals - Most Recent: Last Vital Signs Temp 37.0 C 08/13/17 08:00 Pulse 91 08/13/17 09:01 Resp 16 08/13/17 08:00 BP 120/70 08/13/17 11:40 Pulse Ox 94 L 08/13/17 08:00 Weight - Most Recent: 131.542 kg I&O - Last 24 hours: Intake & Output 08/12/17 08/13/17 08/13/17 22:59 06:59 14:59 Intake Total 540 Output Total 550 Balance -10 Lab Results - Last 24 hrs: Laboratory Results - last 24 hr 08/13/17 08/13/17 08/13/17 Range/Units 06:08 09:18 09:18 Sodium 137 (136-146) mmol/L Potassium 3.9 (3.5-5.1) mmol/L Chloride 105 (98-110) mmol/L Carbon Dioxide 23 (21-31) mmol/L BUN 16 (6.0-23.0) mg/dL Creatinine 0.9 (0.6-1.5) mg/dL Est Cr Clr Drug Dosing 98.01 mL/min Estimated GFR (MDRD) > 60.0 ml/min Glucose 159 H (60-110) mg/dL POC Glucose 78 (60-110) mg/dL Calcium 9.3 (8.8-10.8) mg/dL Magnesium 1.9 (1.5-2.3) mEq/L Total Bilirubin 0.5 (0.1-1.5) mg/dL AST 26 (5-40) IU/L ALT 51 (8-54) IU/L Alkaline Phosphatase 90 (40-150) Total Protein 7.4 (6.0-8.0) g/dL Albumin 4.1 (3.5-5.0) g/dL Globulin 3.3 (2.0-3.5) g/dL Albumin/Globulin Ratio 1.2 L (1.3-2.8) TSH 3rd Generation 1.64 (0.47-5.0) uIU/mL 08/13/17 Range/Units 11:29 Sodium (136-146) mmol/L Potassium (3.5-5.1) mmol/L Chloride (98-110) mmol/L Carbon Dioxide (21-31) mmol/L BUN (6.0-23.0) mg/dL Creatinine (0.6-1.5) mg/dL Est Cr Clr Drug Dosing mL/min Estimated GFR (MDRD) ml/min Glucose (60-110) mg/dL POC Glucose 75 (60-110) mg/dL Calcium (8.8-10.8) mg/dL Magnesium (1.5-2.3) mEq/L Total Bilirubin (0.1-1.5) mg/dL AST (5-40) IU/L ALT (8-54) IU/L Alkaline Phosphatase (40-150) Total Protein (6.0-8.0) g/dL Albumin (3.5-5.0) g/dL Globulin (2.0-3.5) g/dL Albumin/Globulin Ratio (1.3-2.8) TSH 3rd Generation (0.47-5.0) uIU/mL Med Orders - Current: Current Medications Aspirin (Aspirin) 81 mg PO DAILY [facility] Last Admin: 08/13/17 11:41 Dose: 81 mg Baclofen (Lioresal) 10 mg PO TID PRN PRN Reason: Spasms Insulin Aspart (Novolog) 0 unit SUBCUT TIDAC MATILDE PRN Reason: Protocol Last Admin: 08/13/17 11:42 Dose: Not Given Lisinopril (Prinivil) 30 mg PO DAILY [facility] Last Admin: 08/13/17 11:40 Dose: 30 mg Metoprolol Tartrate (Lopressor) 25 mg PO Q12HR [facility] Last Admin: 08/13/17 09:01 Dose: 25 mg Omeprazole (Omeprazole) 20 mg PO DAILY PRN PRN Reason: HEARTBURN Ondansetron HCl (Zofran) 4 mg IVPUSH Q4H PRN PRN Reason: Nausea Quetiapine Fumarate (Seroquel) 150 mg PO BEDTIME [facility] Last Admin: 08/12/17 21:56 Dose: 150 mg Sodium Chloride (Saline Flush) 10 ml FLUSH ASDIRECTED PRN PRN Reason: Keep Vein Open Sodium Chloride (Saline Flush) 2.5 ml FLUSH ASDIRECTED PRN PRN Reason: Keep Vein Open Discontinued Medications Diltiazem HCl (Diltiazem) 20 mg IVPUSH ONETIME ONE Stop: 08/12/17 16:32 Last Admin: 08/12/17 16:42 Dose: 20 mg Magnesium Sulfate 2 gm/ Premix 50 mls @ 50 mls/hr IV ONETIME ONE Stop: 08/12/17 22:04 Last Admin: 08/12/17 22:01 Dose: 50 mls/hr Rivaroxaban (Xarelto) 10 mg PO ONETIME ONE Stop: 08/12/17 17:08 Last Admin: 08/12/17 17:41 Dose: 10 mg *Q Meaningful Use (DIS) - VTE *Q VTE Criteria *Q: - Stroke *Q Stroke Criteria *Q: - AMI *Q AMI Criteria *Q: <Tylor Patten - Last Filed: 08/14/17 11:19> - Patient Data Vitals - Most Recent: Last Vital Signs Temp 37.0 C 08/13/17 08:00 Pulse 91 08/13/17 09:01 Resp 16 08/13/17 08:00 BP 120/70 08/13/17 11:40 Pulse Ox 94 L 08/13/17 08:00 Lab Results - Last 24 hrs: Laboratory Results - last 24 hr 08/13/17 Range/Units 11:29 POC Glucose 75 (60-110) mg/dL Med Orders - Current: Current Medications Discontinued Medications Aspirin (Aspirin) 81 mg PO DAILY [facility] Last Admin: 08/13/17 11:41 Dose: 81 mg Baclofen (Lioresal) 10 mg PO TID PRN PRN Reason: Spasms Diltiazem HCl (Diltiazem) 20 mg IVPUSH ONETIME ONE Stop: 08/12/17 16:32 Last Admin: 08/12/17 16:42 Dose: 20 mg Magnesium Sulfate 2 gm/ Premix 50 mls @ 50 mls/hr IV ONETIME ONE Stop: 08/12/17 22:04 Last Admin: 08/12/17 22:01 Dose: 50 mls/hr Insulin Aspart (Novolog) 0 unit SUBCUT TIDAC [facility] PRN Reason: Protocol Last Admin: 08/13/17 11:42 Dose: Not Given Lisinopril (Prinivil) 30 mg PO DAILY [facility] Last Admin: 08/13/17 11:40 Dose: 30 mg Metoprolol Tartrate (Lopressor) 25 mg PO Q12HR [facility] Last Admin: 08/13/17 09:01 Dose: 25 mg Omeprazole (Omeprazole) 20 mg PO DAILY PRN PRN Reason: HEARTBURN Ondansetron HCl (Zofran) 4 mg IVPUSH Q4H PRN PRN Reason: Nausea Quetiapine Fumarate (Seroquel) 150 mg PO BEDTIME [facility] Last Admin: 08/12/17 21:56 Dose: 150 mg Rivaroxaban (Xarelto) 10 mg PO ONETIME ONE Stop: 08/12/17 17:08 Last Admin: 08/12/17 17:41 Dose: 10 mg Sodium Chloride (Saline Flush) 10 ml FLUSH ASDIRECTED PRN PRN Reason: Keep Vein Open Sodium Chloride (Saline Flush) 2.5 ml FLUSH ASDIRECTED PRN PRN Reason: Keep Vein Open *Q Meaningful Use (DIS) - VTE *Q VTE Criteria *Q: - Stroke *Q Stroke Criteria *Q: - AMI *Q AMI Criteria *Q: - Free Text/Narrative Note: I have examined the patient. I have discussed findings and treatment plan with resident. I agree with the assessment and plan outlined in the following resident's note.
--- NOTE | 2017-08-17 18:05 | ECHO ---
The echocardiogram report can been seen in this patient's EMR (electronic medical record) in the Reports section. The echocardiogram report has also been scanned into PACS and can be seen there. [facility]
== END 2017-08-13 14:20 | disposition home or self-care (01) ==
LOC: MW.ED 16:08 → MW.MS 17:50
PROVIDERS: ADMIT Internal Medicine; ATTEND Internal Medicine
DX: I48.91 Unspecified atrial fibrillation (principal); I10 Essential (primary) hypertension; E66.9 Obesity, unspecified; K21.9 Gastro-esophageal reflux disease without esophagitis; M19.90 Unspecified osteoarthritis, unspecified site; Z68.30 Body mass index [BMI] 30.0-30.9, adult; Z79.82 Long term (current) use of aspirin; Z79.899 Other long term (current) drug therapy; Z88.5 Allergy status to narcotic agent; Z88.8 Allergy status to other drugs, medicaments and biological substances; Z85.828 Personal history of other malignant neoplasm of skin; Z90.89 Acquired absence of other organs; Z98.890 Other specified postprocedural states; Z87.891 Personal history of nicotine dependence
CPT/HCPCS: 36415; 71045; 80053; 82962; 83036; 83735; 84443; 84484; 85025; 93306; 96365; 96375; 99285; A9270; G0378; J3475; J3490; 96374; 99283

== ENCOUNTER 2019-09-14 08:54 | Emergency (ER) | payer MEDICAID, OTHER ==
[2019-09-14 10:07] LABS: BLOOD UREA NITROGEN,BUN 15 mg/dL (7.0-18.0); CARBON DIOXIDE,CO2 23.5 mmol/L (21.0-32.0); CHLORIDE,CL 101 mmol/L (98-107); GLUCOSE RANDOM 83 mg/dL (74-106); POTASSIUM,K 3.9 mmol/L (3.5-5.1); SODIUM,NA 138 mmol/L (136-148)
--- NOTE | 2019-09-14 10:07 | CR ---
Chest: 2 views of the chest were obtained. Comparison: Prior chest x-ray of 02/11/18. Slight scarring is noted within the left lung base. Lungs otherwise are clear with no acute parenchymal change. Heart size and mediastinum are normal. Mild degenerative change is scattered within the spine with disc space narrowing and mild scattered endplate osteophytes. Impression: 1. Findings as described above. 2. Nothing acute is appreciated. Diagnostic code #2 This report was dictated in Mountain Standard Time
--- NOTE | 2019-09-14 10:16 | EDM.PDOC ---
ED HPI GENERAL MEDICAL PROBLEM - General Chief Complaint: Respiratory Problem Stated Complaint: SOB/ COLD Time Seen by Provider: 09/14/19 10:09 - History of Present Illness INITIAL COMMENTS - FREE TEXT/NARRATIVE: HPI 54-year-old morbidly obese male with COPD presents for evaluation of cough, shortness breath, and myalgias of approximately 4 days duration. * PE risk factors: denies history of DVT or PE, recent immobilization, leg trauma, estrogen use, surgery in the last four weeks, hemoptysis, or malignancy in the last 6 months. * Inhaler(s): Duoneb, Spiriva, no spacer. * CHF: denies weight gain, orthopnea, or diuretic use. Triage note: PT to ed with c/o having SOB today, pt reports using neb around 0700 today. pt reports hx of emphysema and o2 is baseline low 90's. M/S/F/SocHx notable for: back pain, chest pain, atrial fibrillation; remainder reviewed with patient and in chart. ROS: Negative constitutional, eye, cardiovascular, pulmonary, GI, , MSK, skin , neurologic, psychiatric, endocrine unless noted in the HPI. Exam HR 101, RR 18, BP 145/74, T 36.7C, SaO2 97% on room air. Gen: Pleasant, non-toxic appearing, not in extremis. HEENT: NC, AT, PEERL, EOMI, trachea midline. Resp: auscultation bilaterally, normal work of breathing. Card: RRR with no M/R/G, no crackles in lung bases, no pedal edema, no JVD appreciated. GI: Non-tender to palpation throughout all quadrants, no rebound or guarding. MSK: No chest wall TTP. No visible deformities, strength and tone WNL. Skin: Normal color with no visible lesions. Vascular: both calves of equal size and nontender to palpation bilaterally. Neuro: alert and oriented 3, no facial asymmetry, vision and hearing WNL. Psych: Mood and affect appropriate. Labs / Imaging (pertinent): influenza A positive, influenza B negative. WBC 5.66, HB 14.8, sodium 138 potassium 3.9, troponin <0.050. EKG: SR at 88 bpm, no NM segment depressions, no new ST segment changes, new LBBB, or T-wave changes that would suggest acute ischemia. CXR: Slight scarring is noted within the left lung base. Lungs otherwise are clear with no acute parenchymal change. Heart size and mediastinum are normal. Mild degenerative change is scattered within the spine with disc space narrowing and mild scattered endplate osteophytes. Impression: Nothing acute is appreciated. MDM Previous chart, nursing note, and vitals reviewed. A: 54-year-old morbidly obese male with COPD presents for evaluation of cough, shortness breath, and myalgias of approximately 4 days duration. DDx: COPD exacerbation, pneumonia, bronchitis, pneumothorax, anxiety, PE, CHF exacerbation, pleural effusion, pericardial effusion, ACS. Evaluation: * COPD exacerbation - normal work of breathing, no wheezing, no evidence of RAD exacerbation. * Pneumonia - as the CXR is without focal infiltrate and the patient is afebrile and without significant sputum production, doubt pneumonia. * Bronchitis - doubt given the lack of productive cough or systemic symptoms. * Pneumothorax - no evidence by CXR. * Anxiety - patient clinically without evidence of appreciable anxiety on exam. * PE - low clinical suspicion given history and alternate diagnosis, further risk stratification (e.g.) Well's not indicated. * CHF - no evidence by CXR, auscultation, or physical exam. * Pleural effusion - CXR without evidence of effusions. * Pericardial effusion - doubt pericardial effusion given an alternate diagnosis , the lack of cardiomegaly on CXR and normal heart sounds. * ACS - doubt ACS given a non-ischemic EKG and a negative troponin greater than six hours from maximal symptom onset. * Viral infection - overall symptoms consistent with the patients positive influenza A swamp. Suspect this is the underlying process. Recommend supportive care. Impression: influenza A. - Related Data Allergies Allergy/AdvReac Type Severity Reaction Status Date / Time hydrocodone Allergy Itching Verified 09/14/19 08:56 paroxetine HCl [From Paxil] Allergy Itching Verified 09/14/19 08:56 Home Meds: Home Meds Esomeprazole [NexIUM] 20 mg PO DAILY PRN 12/28/13 [History] QUEtiapine [SEROquel] 150 mg PO BEDTIME 12/28/13 [History] Lisinopril 30 mg PO DAILY 03/05/17 [History] amLODIPine [Norvasc] 10 mg PO DAILY 03/05/17 [History] Aspirin 81 mg PO DAILY 60 Days #30 tab.chew 08/13/17 [Rx] Fish Oil/[place]-3 Fatty Acids [Fish Oil 1,000 MG] 1,000 mg DAILY 02/11/18 [ History] Metoprolol Tartrate [Lopressor] 50 mg PO BID 02/11/18 [History] Ipratropium/Albuterol Sulfate [Iprat-Albut 0.5-3(2.5) MG/3 ML] 3 ml INH QID 10/30 [History] Rosuvastatin [Crestor] 40 mg PO DAILY 09/14/19 [History] Tiotropium [place] [Spiriva Respimat] 2 puff INH DAILY 09/14/19 [History] Past Medical History - Past Health History Medical/Surgical History: Denies Medical/Surgical History HEENT History: Reports: None Cardiovascular History: Reports: High Cholesterol, Hypertension Respiratory History: Reports: Other (See Below) Other Respiratory History: Emphysema Gastrointestinal History: Reports: GERD Genitourinary History: Reports: None Musculoskeletal History: Reports: Arthritis, Back Pain, Chronic, Other (See Below) Other Musculoskeletal History: 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 Neurological History: Reports: None Psychiatric History: Reports: Other (See Below) Other Psychiatric History: insomnia Endocrine/Metabolic History: Reports: Obesity/BMI 30+ Hematologic History: Reports: None Immunologic History: Reports: None Oncologic (Cancer) History: Reports: Other (See Below) Other Oncologic History: surgical removal of left cheek skin cancer Dermatologic History: Reports: None - Infectious Disease History Infectious Disease History: Reports: None - Past Surgical History Head Surgeries/Procedures: Reports: None HEENT Surgical History: Reports: Tonsillectomy Respiratory Surgical History: Reports: None GI Surgical History: Reports: Colonoscopy Male Surgical History: Reports: None Endocrine Surgical History: Reports: None Neurological Surgical History: Reports: None Musculoskeletal Surgical History: Reports: None Oncologic Surgical History: Reports: None Dermatological Surgical History: Reports: Skin Biopsy Social & Family History - Family History Family Medical History: Noncontributory Musculoskeletal: Reports: Arthritis - Tobacco Use Smoking Status *Q: Never Smoker Second Hand Smoke Exposure: No - Caffeine Use Caffeine Use: Reports: Tea - Recreational Drug Use Recreational Drug Use: No - Living Situation & Occupation Occupation: Employed ED ROS GENERAL - Review of Systems Review Of Systems: See Below ED EXAM, GENERAL - Physical Exam Exam: See Below Course - Vital Signs Last Recorded V/S: Last Vital Signs Temp 36.7 C 09/14/19 08:56 Pulse 101 H 09/14/19 08:56 Resp 18 09/14/19 08:56 BP 145/74 H 09/14/19 08:56 Pulse Ox 94 L 09/14/19 08:56 - Orders/Labs/Meds Orders: Active Orders 24 hr Category Date Time Status EKG 12 Lead [EKG Documentation Completion] [RC] STAT Care 09/14/19 09:05 Active Labs: Laboratory Tests 09/14/19 09/14/19 Range/Units 09:27 09:27 WBC 5.66 (4.0-11.0) K/uL RBC 4.94 (4.50-5.90) M/uL Hgb 14.8 (13.0-17.0) g/dL Hct 43.6 (38.0-50.0) % MCV 88.3 (80.0-98.0) fL MCH 30.0 (27.0-32.0) pg MCHC 33.9 (31.0-37.0) g/dL RDW Std Deviation 43.1 (28.0-62.0) fl RDW Coeff of Kathleen 13 (11.0-15.0) % Plt Count 152 (150-400) K/uL MPV 10.80 (7.40-12.00) fL Neut % (Auto) 58.4 (48.0-80.0) % Lymph % (Auto) 17.8 (16.0-40.0) % [place] % (Auto) 20.5 H (0.0-15.0) % Eos % (Auto) 2.8 (0.0-7.0) % Baso % (Auto) 0.5 (0.0-1.5) % Neut # (Auto) 3.3 (1.4-5.7) K/uL Lymph # (Auto) 1.0 (0.6-2.4) K/uL [place] # (Auto) 1.2 H (0.0-0.8) K/uL Eos # (Auto) 0.2 (0.0-0.7) K/uL Baso # (Auto) 0.0 (0.0-0.1) K/uL Nucleated RBC % 0.0 /100WBC Nucleated RBCs # 0 K/uL Sodium 138 (136-148) mmol/L Potassium 3.9 (3.5-5.1) mmol/L Chloride 101 (98-107) mmol/L Carbon Dioxide 23.5 (21.0-32.0) mmol/L BUN 15 (7.0-18.0) mg/dL Creatinine 1.1 (0.8-1.3) mg/dL Est Cr Clr Drug Dosing 80.81 mL/min Estimated GFR (MDRD) > 60.0 ml/min Glucose 83 (74-106) mg/dL Calcium 9.2 (8.5-10.1) mg/dL Troponin I < 0.050 (0.000-0.056) ng/mL Departure - Departure Time of Disposition: 10:16 Disposition: Home, Self-Care 01 Clinical Impression: Influenza A - Discharge Information Referrals: PCP,Unknown [Primary Care Provider] - Additional Instructions: You were in seen in the [facility] Emergency Department for evaluation of cough, shortness breath, and muscle aches. You were found to have influenza. This is a self limited viral illness which usually clears in 4-6 days. Please read and follow all of the instructions below. Please follow up with your primary care physician within 24 to 48 hours for repeat evaluation and further care. When calling for follow-up care, please make the office aware that this follow-up is from your recent emergency room visit. If for any reason you are refused follow-up, please contact the [facility] Emergency Department at and asked to speak to the emergency department charge nurse. Your care today was limited to identifying and treating emergent medical problems only. Many people have subtle differences in their test results that require follow up with their outpatient physician(s) to correctly determine if this represents a normal variation or concerning abnormality with respect to your specific health. The care given to you today was limited to identifying and treating emergent medical problems - you need to request a copy of all of your medical records from today's visit and follow up with your outpatient physician(s) to review both today's visit and your overall health. If you have any new symptoms or if you are at all concerned about your health please return immediately to the emergency department. Prescriptions: If you are uninsured or have financial difficulties with filling your prescription(s), you may consider using a free pharmacy discount service such as [employer] ([employer]) or [employer] ([employer] H[employer]). These services allow you to search for a medication on your phone (or computer) and obtain a coupon that usually has a significant discount from the list colindres at a pharmacy. Your physician as well as [facility] does not have a financial relationship with either of these services. You may also wish to speak with your physician to determine if lower cost prescriptions are possible. Obtaining primary care: 1. [facility] provides pediatrics (children), family medicine (children, adults, and some obstetrical care), and internal medicine (adults). Further specialty care is also available. Same day appointments are available. They may be contacted at [phone] and are open Thursday through Thursday 8 AM to 5 PM. The [facility] are located at [facility], [address] [place] [address]. 2. [facility] offers family medicine, internal medicine, [facility], and further specialty care. [facility] may be contacted at [phone]. [facility] is located at [facility]. [place] [id number]. 3. If you have health insurance, please also contact your insurer for a list of accepting providers under your policy, you may contact these providers for further health care. Occupational health: Work related injuries may consider following up with [facility], . Occupational health services are located at [address] [place] [address] and are open Thursday through Thursday from 7: 30 am to 5:00 pm. Obstetrical and Gynecological Care: [facility], , Thursday through Thursday 8 AM to 5 PM. [address], [place] [address]. Eyecare: If you have an eye injury you should follow up with your claim technician or with [facility], at [phone] or [phone] , they are located at [address] [place] [address]. Dental Care Regis Fischer DDS. [address] [facility] [place], [place]. Ph. [phone] Tomás Fischer DDS MS. [address] [facility] [address], [place], [place]. Ph. [phone] Maikel Borja DDS. 10 07/[address] [place] [address], [place], [place]. Ph. [phone] Antonio Bernard DDS. [address] [facility] [address] [place], [place]. Ph. [phone] Ishmael Bowers DDS PC. [address] [facility] [address] [place], [place]. Ph. [phone] Peyman Francois DDS. [address] [facility]. Ph. [phone] [facility]. [address] [place], [place]. Ph. [phone] [facility]. [address], [place], [place]. Ph. [phone] [facility] [address] [place] [address]. Ph. [facility]. [address] [place] [address] [address]. [place], [place]. Ph. [facility]. [address] [place], [place]. Ph. [phone] What is the flu? The flu is a viral infection that can cause fever, cough, body aches, and other symptoms. There are different forms of the flu, including the "seasonal" flu, the 5954-5625 pandemic H1N1 flu (also called the "swine" flu), and the bird flu. All forms of the flu are caused by viruses. The medical term for the flu is "influenza." All forms of the flu can cause fevers, cough, headaches or body aches, and a sore throat or runny nose. Return to the emergency department if you have any of the following: * Have trouble breathing or are short of breath * Feel pain or pressure in your chest or belly * Get suddenly dizzy * Feel confused * Have severe vomiting * If you are breathing fast, have trouble breathing, are if you turn blue or purple * If you are excessively fatigued you have difficulty waking up * If you start getting better from the flu but then have worsening sickness, this could represent a secondary bacterial infection. * If you develop a fever, rash, neck stiffness, headaches, or bright lights bother you. * If you are otherwise concerned about your health * If you decide to go to a walk-in clinic or a hospital because of the flu, tell someone right away why you are there. The staff might ask you to wear a mask or to wait someplace where you are less likely to spread your infection. Home Care The primary treatment for influenza is supportive care. Please stay well- hydrated, rest, consume a light diet, and - if you do not have any allergies or other reasons not to - you may take ibuprofen and acetaminophen as directed on the bottle for symptomatic relief from your fevers and aches. Do not go to work or school until your fever has been gone for at least 24 hours, without a taking fever-reducing medicine, such as acetaminophen or ibuprofen. If you work in a healthcare setting taking care of patients, you might need to stay home longer if you are still coughing. Also, always cover your mouth and nose with the inside of your elbow when you cough or sneeze. Sepsis Event Note - Evaluation Sepsis Screening Result: No Definite Risk - Focused Exam Vital Signs: Vital Signs Temp Pulse Resp BP Pulse Ox 09/14/19 08:56 36.7 C 101 H 18 145/74 H 94 L Date Exam was Performed: 09/14/19 Time Exam was Performed: 10:15 - My Orders Last 24 Hours: My Active Orders 09/14/19 09:05 EKG 12 Lead [EKG Documentation Completion] [RC] STAT - Assessment/Plan Last 24 Hours: My Active Orders 09/14/19 09:05 EKG 12 Lead [EKG Documentation Completion] [RC] STAT
[2019-09-14 10:33] VITALS: BP 120/72; PULSE 89
== END 2019-09-14 10:27 | disposition home or self-care (01) ==
LOC: MW.ED 08:54
DX: J10.1 Influenza due to other identified influenza virus with other respiratory manifestations (principal); E66.01 Morbid (severe) obesity due to excess calories; Z88.8 Allergy status to other drugs, medicaments and biological substances; Z98.890 Other specified postprocedural states; Z79.82 Long term (current) use of aspirin; Z79.899 Other long term (current) drug therapy
CPT/HCPCS: 36415; 71046; 71046-26; 80048; 84484; 85025; 87804; 93005; 99284; 99285-25

== ENCOUNTER 2019-11-20 00:58 | Emergency (ER) | payer MEDICAID ==
--- NOTE | 2019-11-20 01:17 | EDM.PDOC ---
ED HPI GENERAL MEDICAL PROBLEM - General Chief Complaint: Burn Stated Complaint: BURN ON left LEG Time Seen by Provider: 11/20/19 01:04 Source of Information: Reports: Patient History Limitations: Reports: No Limitations - History of Present Illness INITIAL COMMENTS - FREE TEXT/NARRATIVE: History of present illness: [Patient is a 54-year-old male who presents after suffering a burn on his left leg about an hour [employer]. He states he was making some tea and he spilled the hot water over the lateral aspect of his leg from the mid thigh down to just behind the knee. He immediately rinsed his leg in cool water and applied aloe vera. Denies any other injury or trauma. Took 2 tablets of Tylenol prior to arrival. No other complaints at this time.] Review of systems: As per history of present illness and below otherwise all systems reviewed and negative. Past medical history: As per history of present illness and as reviewed below otherwise noncontributory. Surgical history: As per history of present illness and as reviewed below otherwise noncontributory. Social history: No reported history of drug or alcohol abuse. Family history: As per history of present illness and as reviewed below otherwise noncontributory. Physical exam: General: Awake, alert, no acute distress, A&O X3. HEENT: Atraumatic, normocephalic, pupils reactive, negative for conjunctival pallor or scleral icterus, mucous membranes moist, throat clear, neck supple, nontender, trachea midline. Lungs: Clear to auscultation, breath sounds equal bilaterally, chest nontender. Heart: RRR, normal S1S2, no JVD. Abdomen: Soft, nondistended, nontender. Negative for masses or hepatosplenomegaly. Negative for costovertebral tenderness. Pelvis: Stable nontender. Genitourinary: Deferred. Rectal: Deferred. SKIN: Mild erythema with 2 recently popped blisters, about 1 to 2 cm in diameter along the posterior aspect of the left leg, just proximal to the knee. Consistent with mild second-degree burn. Extremities: Atraumatic, negative for cords or calf pain. Neurovascular unremarkable. Neuro: Awake, alert, oriented. Motor and sensory grossly intact throughout. Exam nonfocal. Diagnostics: [] Therapeutics: [] Impression: [] Plan: [] Definitive disposition and diagnosis as appropriate pending reevaluation and review of above. Left Leg Pain Score (Numeric/FACES): 9 - Related Data Allergies Allergy/AdvReac Type Severity Reaction Status Date / Time hydrocodone Allergy Itching Verified 09/14/19 08:56 paroxetine HCl [From Paxil] Allergy Itching Verified 09/14/19 08:56 Home Meds: Home Meds Esomeprazole [NexIUM] 20 mg PO DAILY PRN 12/28/13 [History] QUEtiapine [SEROquel] 150 mg PO BEDTIME 12/28/13 [History] Lisinopril 30 mg PO DAILY 03/05/17 [History] amLODIPine [Norvasc] 10 mg PO DAILY 03/05/17 [History] Aspirin 81 mg PO DAILY 60 Days #30 tab.chew 08/13/17 [Rx] Fish Oil/[place]-3 Fatty Acids [Fish Oil 1,000 MG] 1,000 mg DAILY 02/11/18 [ History] Metoprolol Tartrate [Lopressor] 50 mg PO BID 02/11/18 [History] Benzonatate [Tessalon [place]] 100 mg PO TID PRN #12 capsule 09/14/19 [Rx] Ipratropium/Albuterol Sulfate [Iprat-Albut 0.5-3(2.5) MG/3 ML] 3 ml INH QID 10/30 [History] Rosuvastatin [Crestor] 40 mg PO DAILY 09/14/19 [History] Tiotropium [place] [Spiriva Respimat] 2 puff INH DAILY 09/14/19 [History] Past Medical History - Past Health History Medical/Surgical History: Denies Medical/Surgical History HEENT History: Reports: None Cardiovascular History: Reports: High Cholesterol, Hypertension Respiratory History: Reports: Other (See Below) Other Respiratory History: Emphysema Gastrointestinal History: Reports: GERD Genitourinary History: Reports: None Musculoskeletal History: Reports: Arthritis, Back Pain, Chronic, Other (See Below) Other Musculoskeletal History: 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 Neurological History: Reports: None Psychiatric History: Reports: Other (See Below) Other Psychiatric History: insomnia Endocrine/Metabolic History: Reports: Obesity/BMI 30+ Hematologic History: Reports: None Immunologic History: Reports: None Oncologic (Cancer) History: Reports: Other (See Below) Other Oncologic History: surgical removal of left cheek skin cancer Dermatologic History: Reports: None - Infectious Disease History Infectious Disease History: Reports: None - Past Surgical History Head Surgeries/Procedures: Reports: None HEENT Surgical History: Reports: Tonsillectomy Respiratory Surgical History: Reports: None GI Surgical History: Reports: Colonoscopy Male Surgical History: Reports: None Endocrine Surgical History: Reports: None Neurological Surgical History: Reports: None Musculoskeletal Surgical History: Reports: None Oncologic Surgical History: Reports: None Dermatological Surgical History: Reports: Skin Biopsy Social & Family History - Family History Family Medical History: Noncontributory Musculoskeletal: Reports: Arthritis - Tobacco Use Smoking Status *Q: Never Smoker Second Hand Smoke Exposure: No - Caffeine Use Caffeine Use: Reports: Tea - Recreational Drug Use Recreational Drug Use: No - Living Situation & Occupation Occupation: Employed ED ROS GENERAL - Review of Systems Review Of Systems: Comprehensive ROS is negative, except as noted in HPI. ED EXAM, BURN/SMOKE INHALATION - Physical Exam Exam: See Below (See H&P) Course - Vital Signs Text/Narrative:: Topical Silvadene applied to the wound. No indication for antibiotics, relatively mild burn, encouraged him to use aloe vera and topical antibiotics as needed. Sent a prescription for pain medicine, he requested Tylenol 3, to [facility]. Patient is otherwise well-appearing, nontoxic, stable at discharge. Last Recorded V/S: Last Vital Signs Temp 36.3 C 11/20/19 00:59 Pulse 107 H 11/20/19 00:59 Resp 14 11/20/19 00:59 BP 151/70 H 11/20/19 00:59 Pulse Ox 96 11/20/19 00:59 Departure - Departure Time of Disposition: 01:21 Disposition: Home, Self-Care 01 Condition: Good Clinical Impression: Burn - Discharge Information Instructions: Burn Care, Adult, [id number] Referrals: Evgeny Christianson MD [Primary Care Provider] - Forms: ED Department Discharge Additional Instructions: Take all medications as prescribed. Follow-up with PCP. Return to the ER with any new or worsening symptoms. The following information is given to patients seen in the emergency department who are being discharged to home. This information is to outline your options for follow-up care. We provide all patients seen in our emergency department with a follow-up referral. The need for follow-up, as well as the timing and circumstances, are variable depending upon the specifics of your emergency department visit. If you don't have a primary care physician on staff, we will provide you with a referral. We always advise you to contact your personal physician following an emergency department visit to inform them of the circumstance of the visit and for follow-up with them and/or the need for any referrals to a consulting specialist. The emergency department will also refer you to a specialist when appropriate. This referral assures that you have the opportunity for follow-up care with a specialist. All of these measure are taken in an effort to provide you with optimal care, which includes your follow-up. Under all circumstances we always encourage you to contact your private physician who remains a resource for coordinating your care. When calling for follow-up care, please make the office aware that this follow-up is from your recent emergency room visit. If for any reason you are refused follow-up, please contact the [facility] Emergency Department at and asked to speak to the emergency department charge nurse. Sepsis Event Note - Evaluation Sepsis Screening Result: No Definite Risk - Focused Exam Vital Signs: Vital Signs Temp Pulse Resp BP Pulse Ox 11/20/19 00:59 36.3 C 107 H 14 151/70 H 96 Date Exam was Performed: 11/20/19 Time Exam was Performed: 01:20
[2019-11-20] MEDS ORDERED: Silver Sulfadiazine 1% Crm 50 GM Tube TOP ONE ×2 (01:18→01:20)
[2019-11-20 01:51] VITALS: BP 117/61; PULSE 90
== END 2019-11-20 01:45 | disposition home or self-care (01) ==
LOC: MW.ED 00:58
DX: T24.212A Burn of second degree of left thigh, initial encounter (principal); E78.00 Pure hypercholesterolemia, unspecified; I10 Essential (primary) hypertension; K21.9 Gastro-esophageal reflux disease without esophagitis; M19.90 Unspecified osteoarthritis, unspecified site; E66.9 Obesity, unspecified; Z88.5 Allergy status to narcotic agent; Z88.8 Allergy status to other drugs, medicaments and biological substances; Z79.899 Other long term (current) drug therapy; Z79.82 Long term (current) use of aspirin; Z68.41 Body mass index [BMI] 40.0-44.9, adult; X11.8XXA Contact with other hot tap-water, initial encounter
CPT/HCPCS: 16020; 99283; A9270; 99282

== ENCOUNTER 2023-12-04 14:05 | Emergency (ER) | payer MEDICAID ==
[2023-12-04 17:56] LABS: BASOPHILS ABSOLUTE AUTO 0.03 K/uL (0.00-0.20); BASOPHILS PERCENT AUTO 0.4 % (0.0-1.0); EOSINOPHILS PERCENT AUTO 1.3 % (0.0-6.0); HEMATOCRIT 48.4 % (42.0-52.0); HEMOGLOBIN 16.4 g/dL (14.0-18.0); IMMATURE GRAN ABSOLUTE AUTO 0.01 K/uL (0.00-0.05); IMMATURE GRAN PERCENT AUTO 0.1 % (0.0-0.4); LYMPHOCYTES ABSOLUTE AUTO 1.55 K/uL (1.00-4.80); LYMPHOCYTES PERCENT AUTO 19.9 % (24.0-44.0); MEAN CORPUSCULAR HEMOGLOBIN 30.1 pg (28.0-32.0); MEAN CORPUSCULAR HGB CONC 33.9 g/dL (32.0-36.0); MEAN PLATELET VOLUME 10.9 fL (9.4-12.4); MONOCYTES ABSOLUTE AUTO 0.78 K/uL (0.00-0.80); NEUTROPHILS ABSOLUTE AUTO 5.32 K/uL (1.80-7.70); NEUTROPHILS PERCENT AUTO 68.3 % (41.0-71.0); PLATELET COUNT,PLT 169 K/uL (150-400); RED BLOOD CELL COUNT 5.44 M/uL (4.52-5.90); WHITE BLOOD CELL COUNT,WBC 7.79 K/uL (3.9-11.3)
[2023-12-04] MEDS: Sodium Chloride 0.9% 1,000 ML IV ONE (17:56)
[2023-12-04] MEDS: Ketorolac 30 MG/ML SDV IVPUSH ONE (17:57)
[2023-12-04 18:18] LABS: A/G RATIO 0.9 (0.9-1.6); BILIRUBIN TOTAL 0.8 mg/dL (0.2-1.0); CALCIUM 9.3 mg/dL (8.5-10.1); CARBON DIOXIDE,CO2 25.1 mmol/L (21.0-32.0); CREATININE 1.1 mg/dL (0.8-1.3); EST CRCL DRUG DOSING (CG) 74.66 mL/min; POTASSIUM,K 4.7 mmol/L (3.5-5.1); PROTEIN TOTAL,TP 8.6 g/dL (6.4-8.2)
[2023-12-04 19:04] LABS: APPEARANCE,URINE CLEAR; BILIRUBIN,URINE NEGATIVE (NEGATIVE); COLOR,URINE YELLOW; GLUCOSE,URINE NEGATIVE (NEGATIVE); KETONES,URINE NEGATIVE (NEGATIVE); LEUKOCYTE ESTERASE,URINE NEGATIVE (NEGATIVE); NITRITE,URINE NEGATIVE (NEGATIVE); OCCULT BLOOD,URINE NEGATIVE (NEGATIVE); PROTEIN,URINE NEGATIVE (NEGATIVE); UROBILINOGEN,URINE 0.2 EU/dL (<2.0)
[2023-12-05 01:50] VITALS: BP 132/90; PULSE 89
== END 2023-12-04 22:10 | disposition home or self-care (01) ==
LOC: MW.ED 14:05
DX: K76.0 Fatty (change of) liver, not elsewhere classified (principal); R10.31 Right lower quadrant pain; I10 Essential (primary) hypertension; E78.00 Pure hypercholesterolemia, unspecified; E66.9 Obesity, unspecified; Z79.899 Other long term (current) drug therapy; Z79.82 Long term (current) use of aspirin; Z88.6 Allergy status to analgesic agent; Z88.8 Allergy status to other drugs, medicaments and biological substances; Z75.8 Other problems related to medical facilities and other health care; K21.9 Gastro-esophageal reflux disease without esophagitis; Z68.41 Body mass index [BMI] 40.0-44.9, adult
CPT/HCPCS: 36415; 76705; 80053; 81003; 83690; 85025; 96360; 99284; J7030; J1885